=== PATIENT | female | born 1960 | race Caucasian/White ===

== ENCOUNTER → 2020-03-26 | Outpatient (CLI) | payer MEDICARE ==
[2020-03-26 12:06] LABS: ALBUMIN 3.8 gm/dl (3.1-4.5); BILIRUBIN, DIRECT < 0.1 mg/dL (0.0-0.2); BUN 12 mg/dl (7-24); CREATININE 0.65 mg/dL (0.55-1.02); SGOT/AST 14 IU/L (3-35); SGPT/ALT 24 U/L (12-78); TOTAL PROTEIN 7.4 gm/dL (6.4-8.2)
[2020-03-26 12:33] LABS: ALKALINE PHOSPHATASE 87 U/L (45-117)
== END | disposition home or self-care (01) ==
LOC: LAB 11:07
PROVIDERS: ATTEND Physician Assistant Medical
DX: Z51.81 Encounter for therapeutic drug level monitoring (principal); Z79.899 Other long term (current) drug therapy

== ENCOUNTER → 2021-10-25 | Outpatient (CLI) | payer MEDICARE | END | disposition home or self-care (01) | LOC: MRI 11:47 | PROVIDERS: ATTEND Nurse Practitioner Family | DX: M51.36 Other intervertebral disc degeneration, lumbar region (principal); M48.061 Spinal stenosis, lumbar region without neurogenic claudication ==

== ENCOUNTER → 2022-10-02 | Outpatient (CLI) | payer MEDICARE | END | disposition home or self-care (01) | LOC: RAD 14:14 | PROVIDERS: ATTEND Nurse Practitioner Family | DX: M16.12 Unilateral primary osteoarthritis, left hip (principal); M25.752 Osteophyte, left hip; M25.852 Other specified joint disorders, left hip ==